=== PATIENT | male | born 1955 | race Hispanic/Latino ===

== ENCOUNTER → 2017-10-31 | Outpatient (CLI) | payer OTHER ==
[~2017-10-31] MED LIST: ACET1TAB25 PO; AEC81 PO; AMIO200T5 PO; ATOR-2 PO; FLUO40CA49 PO; GABA-531 PO; HYDR12.54 PO; LISI10TA7 PO; METF10004 PO; METO25TA6 PO; RANO500T3 PO; RIVA20TA PO; TRAZ-185 PO
== END | disposition home or self-care (01) ==
LOC: SHCH 10:59
PROVIDERS: ATTEND Internal Medicine Cardiovascular Disease
DX: R09.89 Other specified symptoms and signs involving the circulatory and respiratory systems (principal)
CPT/HCPCS: 93880

== ENCOUNTER 2020-08-14 09:54 | Day surgery (SDC) | payer OTHER ==
[2020-08-12 13:05] LABS: BASOPHILS % (AUTO) 0.4 % (0.0-5.0); EOSINOPHILS % (AUTO) 1.7 % (0.0-8.0); LYMPHOCYTES % (AUTO) 21.6 % (21.0-51.0); MEAN CORPUSCULAR HEMOGLOBIN 27.4 pg (27.0-33.0); MEAN CORPUSCULAR HGB CONC 31.5 g/dL (32.0-36.0); MONOCYTES % (AUTO) 6.7 % (3.0-13.0); NEUTROPHILS % (AUTO) 69.2 % (40.0-77.0); PLATELET COUNT (AUTO) 258 K/uL (130-400); RED CELL DISTRIBUTION WIDTH 15.3 % (11.0-15.5); WHITE BLOOD COUNT (AUTO) 8.9 K/uL (4.8-10.8)
[2020-08-12 13:11] LABS: APPEARANCE,URINE Clear (CLEAR); BILIRUBIN,URINE Negative (NEGATIVE); COLOR,URINE Yellow (YELLOW); GLUCOSE, URINE (UA) >=1000 mg/dL (NEGATIVE); KETONES,URINE Trace mg/dL (NEGATIVE); LEUKOCYTE ESTERASE ,URINE Negative (NEGATIVE); NITRATE,URINE Negative (NEGATIVE); OCCULT BLOOD,URINE Negative (NEGATIVE); PROTEIN,URINE Negative (NEGATIVE)
[2020-08-12 13:15] LABS: CREATININE 1.6 mg/dL (0.5-1.5)
[2020-08-12 13:18] LABS: PROTHROMBIN TIME 10.9 SEC (9.6-11.6)
[2020-08-12 13:19] LABS: PARTIAL THROMBOPLASTIN TIME 26.6 SEC (26.3-35.5)
[2020-08-12 14:06] LABS: BACTERIA,URINE Rare /HPF (None Seen); RBC,URINE None Seen /HPF (0-1); WBC,URINE None Seen /HPF (0-1)
[2020-08-12 14:07] LABS: SQUAMOUS EPITHELIAL CELL,UR 0-2 /HPF (0-2)
[2020-08-13 10:27] VITALS: BP 113/66
[~2020-08-14] VITALS: Ht 170.2 cm; Wt 106.0 kg
[2020-08-14] VITALS (10 sets, daily range): BP systolic 122–205; BP diastolic 55–92
[~2020-08-14 09:54] MED LIST changes: -AMIO200T5 PO; +AMIO200T6 PO; +DUTA1CPM4 PO; +EMPA1TAB3 PO; -FLUO40CA49 PO; -GABA-531 PO; +GABA-533 PO; -HYDR12.54 PO; +ISOS30TA92 PO; +LEVO25CA4 PO; -LISI10TA7 PO; +METF-446 PO; -METF10004 PO; -METO25TA6 PO; +OLME5TAB6 PO; -RANO500T3 PO; +SODIUM CHLORIDE 0.9% 500ML 500 ML IV SCH
[2020-08-14] MEDS ORDERED: SODIUM CHLORIDE 0.9% 1000ML 1,000 ML IV SCH (10:00)
[2020-08-14] MEDS ORDERED: IOHEXOL-350 75 ML VIAL IV ONE (11:24)
[2020-08-14] MEDS ORDERED: NITROGLYCERIN 2 MG/VIAL VIAL IV ONE (11:24)
[2020-08-14] MEDS ORDERED: IOHEXOL 350 MG/ML 100ML INFUS..BTL IV ONE (11:24)
[2020-08-14] MEDS ORDERED: HEPARIN SODIUM 1000UNIT/ML 10ML VIAL ONE (11:24)
[2020-08-14] MEDS ORDERED: SODIUM BICARB 50MEQ 50ML VIAL 50 ML ONE (11:24)
[2020-08-14] MEDS ORDERED: LIDOCAINE HCL 2% 20ML ONE (11:25)
[2020-08-14] MEDS ORDERED: MEPERIDINE-PF 25 MG/ML SYG ONE ×2 (11:39→12:00)
[2020-08-14] MEDS ORDERED: MIDAZOLAM HCL 1 MG/ML 2ML VIAL ONE ×2 (11:39→12:00)
[2020-08-14] MEDS ORDERED: DEXTROSE 50%-WATER 50 ML DISP.SYRIN IV PRN (12:45)
[2020-08-14] MEDS ORDERED: GLUCAGON 1MG KIT 1 MG ML IM PRN (12:45)
[2020-08-14] MEDS ORDERED: HYDRALAZINE HCL 20 MG/ML VIAL IV SCH (15:30)
[2020-08-14] MEDS ORDERED: CLONIDINE HCL 0.1 MG TABLET PO SCH (15:30)
[2020-08-14] MEDS ORDERED: INSULIN HUMULIN R 100 UNIT/ML 3ML SQ SCH (16:30)
== END 2020-08-14 16:30 | disposition home or self-care (01) ==
LOC: DAH 09:54
PROVIDERS: ATTEND Internal Medicine Cardiovascular Disease
DX: I25.118 Atherosclerotic heart disease of native coronary artery with other forms of angina pectoris (principal); I11.0 Hypertensive heart disease with heart failure; I50.31 Acute diastolic (congestive) heart failure; E11.40 Type 2 diabetes mellitus with diabetic neuropathy, unspecified; E78.5 Hyperlipidemia, unspecified; Z86.718 Personal history of other venous thrombosis and embolism; Z95.1 Presence of aortocoronary bypass graft; Z79.01 Long term (current) use of anticoagulants; Z79.84 Long term (current) use of oral hypoglycemic drugs; Z79.82 Long term (current) use of aspirin; Z79.899 Other long term (current) drug therapy
CPT/HCPCS: 36415; 71045; 80048; 81001; 82948 ×2; 85025; 85610; 85730; 93005; 93459; 96365; A4215; A4221; A4222; A4223 ×2; A4606; A4663; C1760; C1894; J1644; J2175 ×2; J2250 ×2; J3490 ×3; Q9965; Q9967 ×2; 99156; 99157; J0360

== ENCOUNTER 2022-12-06 06:05 | Day surgery (SDC) | payer OTHER ==
[2022-12-02 10:10] VITALS: BP 178/87
[2022-12-02 10:18] LABS: BASOPHILS % (AUTO) 0.5 % (0.0-5.0); EOSINOPHILS % (AUTO) 1.6 % (0.0-8.0); HEMATOCRIT 43.6 % (42-54); MEAN CORPUSCULAR HEMOGLOBIN 29.7 pg (27.0-33.0); MEAN CORPUSCULAR HGB CONC 32.1 g/dL (32.0-36.0); MEAN CORPUSCULAR VOLUME 92.6 fL (79-99); MONOCYTES % (AUTO) 6.8 % (3.0-13.0); NEUTROPHILS % (AUTO) 60.4 % (40.0-77.0); PLATELET COUNT (AUTO) 192 K/uL (130-400); RED BLOOD CELL COUNT(AUTO) 4.71 MIL/uL (4.50-6.20); RED CELL DISTRIBUTION WIDTH 15.3 % (11.0-15.5); WHITE BLOOD COUNT (AUTO) 8.6 K/uL (4.8-10.8)
[2022-12-02 10:33] LABS: CREATININE 1.1 mg/dL (0.5-1.5); POTASSIUM 4.6 mmol/L (3.5-5.1)
[2022-12-02 10:35] LABS: APPEARANCE,URINE CLEAR (CLEAR); BILIRUBIN,URINE NEGATIVE (NEGATIVE); COLOR,URINE LIGHT-YELLOW (YELLOW); GLUCOSE, URINE (UA) >=1000 mg/dL (NEGATIVE); KETONES,URINE NEGATIVE (NEGATIVE); LEUKOCYTE ESTERASE ,URINE NEGATIVE Leu/uL (NEGATIVE); NITRATE,URINE NEGATIVE (NEGATIVE); OCCULT BLOOD,URINE NEGATIVE (NEGATIVE); PROTEIN,URINE NEGATIVE (NEGATIVE); UROBILINOGEN,URINE 0.2 mg/dL (0.2-1.0)
[2022-12-02 10:36] LABS: INR 0.93 (0.85-1.15); PROTHROMBIN TIME 10.6 SEC (9.6-11.6)
[2022-12-02 10:38] LABS: PARTIAL THROMBOPLASTIN TIME 36.5 SEC (26.3-35.5)
[2022-12-02 10:39] LABS: SQUAMOUS EPITHELIAL CELL,UR RARE /HPF (0-2)
[2022-12-02 10:49] LABS: B-TYPE NATRIURETIC PEPTIDE 181 pg/mL (0-100)
[2022-12-06] VITALS (13 sets, daily range): BP systolic 109–191; BP diastolic 49–100
[~2022-12-06] VITALS: Ht 165.1 cm; Wt 104.2 kg
[~2022-12-06 06:05] MED LIST changes: -ACET1TAB25 PO; -AMIO200T6 PO; +AMIO200T68 PO; +FURO20TA4 PO; -LEVO25CA4 PO; +LEVO50TA11 PO; +MAGN64TA9 PO; +MECL-160 PO; -METF-446 PO; +METO25TA6 PO; +NITR0.4T50 SL; +OLME5TAB29 PO; -OLME5TAB6 PO; -SODIUM CHLORIDE 0.9% 500ML 500 ML IV SCH; -TRAZ-185 PO
[2022-12-06] MEDS ORDERED: 0.9%NACL 1000ML 1,000 ML IV ONE (06:19)
[2022-12-06] MEDS ORDERED: LIDOCAINE HCL 400MG/20ML VIAL ONE (07:09)
[2022-12-06] MEDS ORDERED: SODIUM BICARB 50MEQ 50ML VIAL 50 ML ONE (07:09)
[2022-12-06] MEDS ORDERED: MEPERIDINE-PF 25 MG/ML SYG ONE ×2 (07:10→07:47)
[2022-12-06] MEDS ORDERED: IOHEXOL-350 50ML VIAL IV ONE ×2 (07:10→08:00)
[2022-12-06] MEDS ORDERED: NITROGLYCERIN 50MG VIAL ONE (07:10)
[2022-12-06] MEDS ORDERED: IOHEXOL 350 MG/ML 100ML INFUS..BTL IV ONE ×2 (07:10→08:09)
[2022-12-06] MEDS ORDERED: MIDAZOLAM HCL 1 MG/ML 2ML VIAL ONE ×2 (07:10→07:47)
[2022-12-06] MEDS ORDERED: HEPARIN 10,000 UNIT/10ML (1,000 UNIT/ML) VIAL ONE (07:10)
[2022-12-06] MEDS ORDERED: CLOPIDOGREL 300MG TAB ONE (08:41)
[2022-12-06] MEDS ORDERED: ASPIRIN 81MG CHEW TAB ONE (08:41)
[2022-12-06] MEDS ORDERED: 0.9%NACL 1000ML 1,000 ML IV SCH (09:00)
[2022-12-06] MEDS ORDERED: ACETAMINOPHEN WITH CODEINE 1 TAB TAB PO PRN ×2 (09:00)
== END 2022-12-06 14:40 | disposition home or self-care (01) ==
LOC: DAH 06:05
PROVIDERS: ATTEND Internal Medicine Cardiovascular Disease
DX: I25.119 Atherosclerotic heart disease of native coronary artery with unspecified angina pectoris (principal); I25.729 Atherosclerosis of autologous artery coronary artery bypass graft(s) with unspecified angina pectoris; I25.82 Chronic total occlusion of coronary artery; I11.0 Hypertensive heart disease with heart failure; I50.32 Chronic diastolic (congestive) heart failure; E11.51 Type 2 diabetes mellitus with diabetic peripheral angiopathy without gangrene; I48.0 Paroxysmal atrial fibrillation; E78.5 Hyperlipidemia, unspecified; I87.2 Venous insufficiency (chronic) (peripheral); Z79.01 Long term (current) use of anticoagulants; Z79.899 Other long term (current) drug therapy; Z79.890 Hormone replacement therapy; Z79.82 Long term (current) use of aspirin; Z95.5 Presence of coronary angioplasty implant and graft; Z98.890 Other specified postprocedural states
CPT/HCPCS: 80048; 83880; 85025; 85610; 85730; 81001; 36415; 71045; 93005; 82948 ×2; 93459; C9600; C1769; C1887; C1894 ×2; C1760; C1874 ×2; J3490 ×3; J7030; J1644 ×2; J2250 ×2; J2175 ×2; Q9967 ×3; A4215; A4222; A4221; A4663; A4216; A4606; Q9965 ×2; A4223 ×3; 96360; 96361; 99156; 99157